=== PATIENT | male | born 1980 | race Caucasian/White ===

== ENCOUNTER 2017-01-24 12:14 | Outpatient (CLI) | payer OTHER ==
[2017-01-24 12:33] LABS: BASOPHILS % (AUTO) 0.4 %; EOSINOPHILS % (AUTO) 0.1 %; HGB - HEMOGLOBIN 14.6 g/dL (14.0-18.0); LYMPHOCYTES % (AUTO) 6.9 %; MEAN CORPUSCULAR HEMOGLOBIN 30.6 pg (27.0-31.0); MEAN CORPUSCULAR HGB CONC 34.8 g/dL (32.0-36.0); MEAN CORPUSCULAR VOLUME 88.1 fL (80.0-94.0); MEAN PLATELET VOLUME 7.9 fL (7.4-11.4); MONOCYTES % (AUTO) 11.3 %; NEUTROPHILS % (AUTO) 81.3 %; RED BLOOD COUNT 4.77 10^6/uL (4.70-6.10); RED CELL DISTRIBUTION WIDTH 12.7 % (12.0-15.0); UNCORRECTED WHITE BLOOD COUNT 19.4 x10^3/uL; WHITE BLOOD COUNT 19.4 x10^3/uL (4.8-10.8)
[2017-01-24 12:38] LABS: CALCIUM 9.6 mg/dL (8.5-10.3); CREATININE 1.5 mg/dL (0.6-1.2); POTASSIUM 3.9 mmol/L (3.5-5.0)
--- NOTE | 2017-01-24 13:03 | XRAY Report ---
EXAM: CHEST RADIOGRAPHY EXAM DATE: 01/24/2017 12:33 PM. CLINICAL HISTORY: Pneumonia. COMPARISON: None. TECHNIQUE: 2 views. FINDINGS: Lungs/Pleura: Focal consolidation in the right midlung consistent with pneumonia. Left lung appears c lear. No pleural effusion or pneumothorax. Mediastinum: Heart and mediastinal contours are unremarkable. Other: None. IMPRESSION: Focal consolidation of the right midlung consistent with pneumonia. Imaging follow-up is recommended after treatment to ensure resolution. [facility] Referring Provider Line: [phone] SITE ID: [id number]
[2017-01-24 13:23] LABS: BAND NEUTROPHILS % (MANUAL) 11 %; LYMPHOCYTES % (MANUAL) 11 %; NEUTROPHILS % (MANUAL) 66 %; PLATELET ESTIMATE, MANUAL NORMAL (130-450,000) (NORMAL)
[2017-01-24 13:24] LABS: NP AUTO DIFFERENTIAL? YES; NP MAN DIFFERENTIAL? NO
== END 2017-01-24 12:15 | disposition home or self-care (01) ==
LOC: LAB 12:14
PROVIDERS: ATTEND Specialist
DX: J18.9 Pneumonia, unspecified organism (principal)
CPT/HCPCS: 36415; 71020; 80048; 85025